=== PATIENT | male | born 1960 | race Hispanic/Latino ===

== ENCOUNTER 2017-07-31 09:33 | Outpatient (CLI) | payer OTHER ==
--- NOTE | 2017-07-31 19:21 | XRay Report ---
FINAL REPORT PROCEDURE: Four view knee series TECHNIQUE: Left and right knee radiographs, 4 or more views, including AP, lateral, and oblique views. CPT [id number], CPT [id number] HISTORY: BILATERAL KNEE PAIN COMPARISON: No prior studies are available for comparison. FINDINGS: The right knee shows no evidence of fracture or dislocation. There is moderate narrowing of the medial compartment of the knee. Marginal osteophytic spurs project in all 3 compartments of the knee. No evidence of joint effusion. No evidence of fracture or dislocation of the left knee. There is marked narrowing of the medial compartment of the left knee. Small marginal osteophytic spurs project in the medial lateral compartment of the knee moderate-sized spurs in the patellar femoral joint space. Small joint effusion is present. Several calcified loose bodies are present posterior aspect of the knee measuring up to 9 millimeters. IMPRESSION: Tricompartmental osteoarthritis visualized bilaterally as described above. Small effusion is seen in the left knee. Several calcified loose body seen posteriorly in the left knee. No fracture or dislocation identified..
== END 2017-07-31 09:34 | disposition home or self-care (01) ==
LOC: SPVIMAG 09:33
PROVIDERS: ATTEND Orthopaedic Surgery
DX: M17.0 Bilateral primary osteoarthritis of knee (principal); M25.862 Other specified joint disorders, left knee; M25.861 Other specified joint disorders, right knee